=== PATIENT | male | born 1955 | race Caucasian/White ===

== ENCOUNTER 2017-09-24 21:52 | Emergency (ER) | payer OTHER ==
[~2017-09-24] VITALS: Ht 180.3 cm; Wt 102.3 kg
[2017-09-24 21:55] VITALS: TEMP 98.3
[2017-09-24 23:47] LABS: BASO % 0.6 % (0.0-2.0); EOS # 0.2 (0.0-0.7); EOS % 2.3 % (0-4.0); GRAN # 4.9 (1.4-6.5); GRAN % 69.4 % (42.2-75.2); LYMPH # 1.3 (1.2-3.4); LYMPH % 18.8 % (20.0-51.0); MEAN CELL VOLUME 92 fl (80.0-100.0); MEAN CORPUSCULAR HGB CONC 35 g/dl (33.0-37.0); MEAN PLATELET VOLUME 12.4 fl (7.4-10.4); MONO # 0.6 (0.1-0.6); MONO % 8.6 % (1.7-9.3); PLATELET COUNT 124 K/mm3 (130-400); REDCELL DISTRIBUTION WIDTH-CV 12.5 % (11.5-14.5)
[2017-09-24] MEDS ORDERED: ASPIRIN 81M81 MG/TA2 PO (23:49)
[2017-09-24] MEDS ORDERED: ADIPEX-P37.5 MG PO (23:49)
[2017-09-24] MEDS ORDERED: TOPAMAX50 MG PO (23:50)
[2017-09-24] MEDS ORDERED: COUMADIN 5MG5 MG/TAB PO (23:50)
[2017-09-24] MEDS ORDERED: PROSCAR 5MG5 MG PO (23:50)
[2017-09-24] MEDS ORDERED: FLOMAX 0.40.4 MG/CAP PO (23:50)
[2017-09-24] MEDS ORDERED: VITAMIN B11000 MCG/M IM (23:51)
[2017-09-24] MEDS ORDERED: LIPITOR20 MG PO (23:51)
[2017-09-24] MEDS ORDERED: GLUCOPHAGE500 MG/TAB PO (23:52)
[2017-09-24] MEDS ORDERED: MASON NATURAL2000 IU (23:52)
[2017-09-24] MEDS ORDERED: MIRALAX PA17 GM/Dose PO (23:52)
[2017-09-24 23:53] LABS: HEMATOCRIT 32.2 % (42.0-52.0); HEMOGLOBIN 11.1 g/dl (13.5-18.0); MEAN CORPUSCULAR HEMOGLOBIN 32 pg (27.0-31.0)
[2017-09-24 23:54] LABS: INR 1.1 (0.8-3.0); PROTHROMBIN TIME 12.8 SECONDS (9.7-12.8)
[2017-09-24 23:56] LABS: ALBUMIN 3.6 gm/dL (3.5-5.0); BILIRUBIN,TOTAL 0.8 mg/dL (0.0-1.0); CALCIUM 8.9 mg/dL (8.4-10.2); CREATININE, serum 0.89 mg/dL (0.66-1.25); POTASSIUM 4.1 mmol/L (3.4-5.0); TOTAL PROTEIN 6.3 gm/dL (6.4-8.2)
[2017-09-25] MEDS ORDERED: LOVENOX 100100 MG/ML SQ (04:30)
[2017-09-25 05:06] VITALS: BP 146/81; PULSE 70
== END 2017-09-25 05:09 | disposition home or self-care (01) ==
LOC: COL.ER 21:52
PROVIDERS: Emergency Medicine
DX: S70.12XA Contusion of left thigh, initial encounter (principal); E11.9 Type 2 diabetes mellitus without complications; I10 Essential (primary) hypertension; E78.5 Hyperlipidemia, unspecified; Z95.4 Presence of other heart-valve replacement; Z96.652 Presence of left artificial knee joint; Z79.84 Long term (current) use of oral hypoglycemic drugs; Z79.82 Long term (current) use of aspirin; Z79.01 Long term (current) use of anticoagulants; X58.XXXA Exposure to other specified factors, initial encounter
CPT/HCPCS: J1650; J7030; Q9967